=== PATIENT | female | born 1985 | race Hispanic/Latino ===

== ENCOUNTER 2016-12-08 10:25 | Inpatient (IN) | payer BC ==
[2016-12-08 16:51] VITALS: BMI 24.2
[2016-12-08] MEDS: Lactated Ringer's 1,000 ML IV SCH ×3 (18:00→19:30)
[2016-12-08 18:11] LABS: BASO # 0.1 K/uL (0.0-0.2); BASO % 0.6 % (0.0-2.0); EOS # 0.1 K/uL (0.0-0.7); EOS % 1.3 % (0.0-4.0); LYMPH # 1.8 K/uL (1.0-4.3); LYMPH % 20.5 % (20.0-40.0); MEAN CELL VOLUME 74.7 fl (81.0-99.0); MEAN CORPUSCULAR HEMOGLOBIN 24.1 pg (27.0-31.0); MEAN CORPUSCULAR HGB CONC 32.3 g/dL (33.0-37.0); MEAN PLATELET VOLUME 7.8 fl (7.2-11.7); MONO # 0.5 K/uL (0.0-0.8); MONO % 6.3 % (0.0-10.0); NEUT # 6.2 K/uL (1.8-7.0); NEUT % 71.3 % (50.0-75.0); NRBC % 0.1 % (0.0-0.0); WHITE BLOOD COUNT 8.7 K/uL (4.8-10.8)
[2016-12-08] MEDS ORDERED: Fentanyl/Bupivacaine HCl 250 ML EPI ONE (18:31)
[2016-12-08] MEDS ORDERED: Bupivacaine HCl 0.25% PF (10 ml) Inj ONE (18:32)
[2016-12-08] MEDS ORDERED: Lidocaine 1% Inj (20ml) ONE (19:22)
[2016-12-08] MEDS ORDERED: Oxytocin 30 units/LR 500ML 30 U/500 ML BAG IV ONE (19:54)
[2016-12-08] MEDS ORDERED: ePHEDrine 50 mg/ml Inj ONE (21:07)
[2016-12-08] MEDS ORDERED: Sodium Chloride 0.9% 1,000 ML IV SCH (21:30)
[2016-12-09] MEDS ORDERED: Sodium Chloride 0.9% 500 ML IV SCH (01:30)
[2016-12-09] MEDS ORDERED: Sodium Chloride 0.9% 1,000 ML IV SCH (02:15)
[2016-12-09] MEDS ORDERED: Oxycodone/Acetaminophen 5/325 mg Tab PO PRN (05:05)
[2016-12-09] MEDS ORDERED: Benzocaine/Menthol SPRAY TOP PRN (05:05)
[2016-12-09] MEDS: Lactated Ringer's 1,000 ML IV SCH (09:06)
[2016-12-10 06:51] LABS: HEMATOCRIT 26.4 % (34.0-47.0); MEAN CELL VOLUME 74.2 fl (81.0-99.0); MEAN CORPUSCULAR HEMOGLOBIN 24.4 pg (27.0-31.0); MEAN CORPUSCULAR HGB CONC 32.9 g/dL (33.0-37.0); RED CELL DISTRIBUTION WIDTH 16.4 % (11.5-14.5); WHITE BLOOD COUNT 13.2 K/uL (4.8-10.8)
[2016-12-10] MEDS: Multivitamin With Minerals Tab PO SCH (08:25)
[2016-12-11] MEDS: Multivitamin With Minerals Tab PO SCH (08:53)
[2016-12-11 19:41] VITALS: BP 99/59; PULSE 78; RESP 18; TEMP 98.1; O2SAT 99
== END 2016-12-11 13:00 | disposition home or self-care (01) | DRG 775 ==
LOC: H.L&D 16:51 → H.OB/GYN 12-09 09:20
PROVIDERS: ADMIT Obstetrics & Gynecology; ATTEND Obstetrics & Gynecology
PROC: 4A1HXCZ Monitoring of Products of Conception, Cardiac Rate, External Approach (ICD-10-PCS; 2016-12-08)
PROC: 10E0XZZ Delivery of Products of Conception, External Approach (ICD-10-PCS; principal; 2016-12-09)
DX: O76 Abnormality in fetal heart rate and rhythm complicating labor and delivery (principal); O48.0 Post-term pregnancy; Z37.0 Single live birth; Z3A.41 41 weeks gestation of pregnancy